=== PATIENT | female | born 1950 | race Caucasian/White ===

== ENCOUNTER → 2023-08-27 17:22 | Outpatient (BNVA) | payer MEDICARE, SELFPAY | PROVIDERS: Visit Provider Nurse Practitioner Family | DX: S70.212A Abrasion, left hip, initial encounter (principal); M25.552 Pain in left hip; W18.2XXA Fall in (into) shower or empty bathtub, initial encounter | CPT/HCPCS: 73502 ==

== ENCOUNTER → 2025-06-10 08:19 | Outpatient (BNVA) | payer MEDICARE, SELFPAY | PROVIDERS: PCP Family Medicine; Visit Provider Podiatrist Foot & Ankle Surgery | DX: M21.372 Foot drop, left foot (principal); Z86.73 Personal history of transient ischemic attack (TIA), and cerebral infarction without residual deficits | CPT/HCPCS: 99203 ==

== ENCOUNTER → 2025-08-06 16:37 | Outpatient (BNVA) | payer MEDICARE, SELFPAY | PROVIDERS: PCP Family Medicine; Visit Provider Psychiatry & Neurology Psychiatry | DX: Z79.899 Other long term (current) drug therapy (principal) | CPT/HCPCS: 80053; 80061; 83036; 84443; 85025 ==